=== PATIENT | female | born 1945 | race Caucasian/White ===

== ENCOUNTER → 2017-07-06 | Outpatient (CLI) | payer OTHER, BC | LOC: FIMAGING 08:53 | PROVIDERS: ATTEND Internal Medicine | DX: Z12.31 Encounter for screening mammogram for malignant neoplasm of breast (principal); Z13.820 Encounter for screening for osteoporosis; Z85.43 Personal history of malignant neoplasm of ovary; Z86.39 Personal history of other endocrine, nutritional and metabolic disease | CPT/HCPCS: G0202 ==

== ENCOUNTER → 2018-04-25 | Outpatient (CLI) | payer OTHER, BC | LOC: BMCIMAGING 10:54 | PROVIDERS: ATTEND Internal Medicine | DX: J98.09 Other diseases of bronchus, not elsewhere classified (principal) ==

== ENCOUNTER 2018-06-08 08:41 | Emergency (ER) | payer OTHER, BC ==
--- NOTE | 2018-06-08 08:58 | EDPHY ---
H & P Stated Complaint: missed step fell into drywall hit fce cranked neck Time Seen by Provider: 06/08/18 08:51 HPI/ROS: CHIEF COMPLAINT: Left neck pain and headache HISTORY OF PRESENT ILLNESS: The patient is a 73-year-old female who fell going down the steps yesterday evening. She fell down a step or 2 forward into the wall. Her head put a dent in the drywall. She hit primarily with her right forehead area. She has a mild headache today and some left lateral neck pain. No midline pain. No paresthesias or weakness. No numbness. No vision changes. She denies other injuries. Severity: Moderate Modifying factors: None REVIEW OF SYSTEMS: Constitutional: denies: chills, fever, recent illness, recent injury EENTM: denies: blurred vision, double vision, nose congestion Respiratory: denies: cough, shortness of breath Cardiac: denies: chest pain, irregular heart rate, lightheadedness, palpitations Gastrointestinal/Abdominal: denies: abdominal pain, diarrhea, nausea, vomiting, blood streaked stools Genitourinary: denies: dysuria, frequency, hematuria, pain Musculoskeletal: See HPI Skin: denies: lesions, rash, jaundice, bruising Neurological: See HPI denies: numbness, paresthesia, tingling, dizziness, weakness Hematologic/Lymphatic: denies: blood clots, easy bleeding, easy bruising Immunologic/allergic: denies: HIV/AIDS, transplant 10 systems reviewed and negative except as noted EXAM: GENERAL: Well-appearing, well-nourished and in no acute distress. HEAD: No visible trauma, normocephalic. EYES: Pupils equal round and reactive to light, extraocular movements intact, sclera anicteric, conjunctiva are normal. ENT: TMs normal, nares patent, oropharynx clear without exudates. Moist mucous membranes. NECK: Left lateral muscular pain, tense, improves with massage. Decreased range of motion to the left LUNGS: Breath sounds clear to auscultation bilaterally and equal. No wheezes rales or rhonchi. HEART: Regular rate and rhythm without murmurs, rubs or gallops. ABDOMEN: Soft, nontender, normoactive bowel sounds. No guarding, no rebound. No masses appreciated. BACK: No CVA tenderness, no spinal tenderness, step-offs or deformities EXTREMITIES: Normal range of motion, no pitting or edema. No clubbing or cyanosis. NEUROLOGICAL: Cranial nerves II through XII grossly intact. Normal speech, normal gait. 5/5 strength, normal movement in all extremities, normal sensation , normal reflexes PSYCH: Normal mood, normal affect. SKIN: Warm, dry, normal turgor, no visible rashes or lesions. Source: Patient Exam Limitations: No limitations - Personal History Current Tetanus Diphtheria and Acellular Pertussis (TDAP): Yes - Medical/Surgical History Hx Asthma: No Hx Chronic Respiratory Disease: No Hx Diabetes: Yes Hx Cardiac Disease: No Hx Renal Disease: No Hx Cirrhosis: No Hx Alcoholism: No Hx HIV/AIDS: No Hx Splenectomy or Spleen Trauma: No Other PMH: diabetes/glaucoma. hysterectomy/ ovarian cancer/cataracts. back surg - Family History Significant Family History: No pertinent family hx - Social History Smoking Status: Never smoked Alcohol Use: Sober Drug Use: None Constitutional: Initial Vital Signs Temperature (C) 36.9 C 06/08/18 08:44 Heart Rate 70 06/08/18 08:44 Respiratory Rate 18 06/08/18 08:44 Blood Pressure 175/84 H 06/08/18 08:44 O2 Sat (%) 95 06/08/18 08:44 O2 Delivery Mode Room Air Allergies/Adverse Reactions: ketorolac [From Toradol] Allergy (Verified 06/08/18 08:42) Home Medications: Medication Instructions Recorded Azopt 1% 06/08/18 Chlorthalidone 06/08/18 Crestor 06/08/18 Diazepam [Valium 5 MG (*)] 5 mg PO TID PRN #10 tab 06/08/18 Invokana 06/08/18 Latanoprost 06/08/18 Levothyroxine 06/08/18 Losartan Potassium 06/08/18 Timolol 0.25% 06/08/18 Medical Decision Making - Diagnostics Imaging Results: Imaging Impressions Cervical Spine CT 06/08/18 08:55 Impression: 1. No acute posttraumatic abnormality identified. 2. Multilevel degenerative change with moderate to severe spinal canal narrowing at C5-C7. Findings discussed with Jonas Toney 06/08/2018 at 9:[address] 06/08/18 08:55 Impression: 1. No acute intracranial findings. 2. Diffuse cerebral atrophy with periventricular and subcortical low attenuation consistent with chronic microvascular ischemic gliosis. Findings discussed with Jonas Toney 06/08/2018 at 9:45 a.m. Imaging: Discussed imaging studies w/ order caller Radiologist ED Course/Re-evaluation: We discussed CT results. The patient is relieved. She is feeling better after Valium. Encouraged her to rest and take muscle relaxants as needed as well as anti-inflammatories. She is happy with this plan and declines further workup or testing at this time. We discussed indications for returning. Differential Diagnosis: Partial list of the Differential diagnosis considered include but were not limited to; cervical strain, concussion, hematoma and although unlikely based on the history and physical exam, I also considered intracranial injury, cervical spine injury, syncope. I discussed these differential diagnoses and the plan with the patient as well as the usual and expected course. The patient understands that the diagnosis is provisional and that in medicine we are not always correct and that further workup is often warranted. Usual and customary warnings were given. All of the patient's questions were answered. The patient was instructed to return to the emergency department should the symptoms at all worsen or return, otherwise to followup with the physician as we discussed. - Data Points Medications Given: Discontinued Medications Diazepam (Valium) 5 mg PO EDNOW ONE Stop: 06/08/18 09:01 Last Admin: 06/08/18 09:02 Dose: 5 mg Departure - Departure Disposition: Home, Routine, Self-Care Clinical Impression: Concussion Qualifiers: Encounter type: initial encounter Loss of consciousness presence/duration: without LOC Qualified Code(s): S06.0X0A - Concussion without loss of consciousness, initial encounter Cervical strain, acute Qualifiers: Encounter type: initial encounter Qualified Code(s): S16.1XXA - Strain of muscle, fascia and tendon at neck level, initial encounter Condition: Fair Instructions: Cervical Strain (ED), Concussion (ED) Referrals: Magnolia Kaba MD [Primary Care Provider] - 2-3 days, call for appt. Prescriptions: Diazepam [Valium 5 MG (*)] 5 mg PO TID PRN #10 tab PRN Reason: Spasms
[2018-06-08] MEDS ORDERED: DIAZEPAM 5 MG TAB PO ONE (09:00)
[2018-06-08 10:18] VITALS: BP 128/68
== END 2018-06-08 10:18 | disposition home or self-care (01) ==
DX: S06.0X0A Concussion without loss of consciousness, initial encounter (principal); S16.1XXA Strain of muscle, fascia and tendon at neck level, initial encounter; E11.9 Type 2 diabetes mellitus without complications; W01.198A Fall on same level from slipping, tripping and stumbling with subsequent striking against other object, initial encounter